=== PATIENT | male | born 1985 ===

== ENCOUNTER → 2024-07-22 08:14 | Outpatient (CLI) | payer BC, SELFPAY | LOC: SL 08:17 | PROVIDERS: PCP Nurse Practitioner Family; Visit Provider Nurse Practitioner Family | DX: G47.33 Obstructive sleep apnea (adult) (pediatric) (principal); G47.10 Hypersomnia, unspecified; R06.83 Snoring; E66.9 Obesity, unspecified; R73.9 Hyperglycemia, unspecified; E78.1 Pure hyperglyceridemia | CPT/HCPCS: G0399 ==